=== PATIENT | female | born 1955 | race Caucasian/White ===

== ENCOUNTER 2021-06-20 13:15 | Outpatient (CLI) | payer OTHER | END 2021-06-20 20:54 | disposition home or self-care (01) | LOC: MRD 13:15 | PROVIDERS: ATTEND Podiatrist Foot & Ankle Surgery | DX: M19.072 Primary osteoarthritis, left ankle and foot (principal); M19.071 Primary osteoarthritis, right ankle and foot | CPT/HCPCS: 73630 ==

== ENCOUNTER 2023-08-29 08:07 | Outpatient (CLI) | payer OTHER ==
[2023-08-29 10:43] LABS: FREE T4 (FREE THYROXINE) 0.91 ng/dL (0.76-1.46); THYROID STIMULATING HORMONE 1.97 uIU/mL (0.34-3.74)
== END 2023-08-29 17:50 | disposition home or self-care (01) ==
LOC: MLB 08:07
PROVIDERS: ATTEND Internal Medicine
DX: E03.9 Hypothyroidism, unspecified (principal); R53.83 Other fatigue; L67.9 Hair color and hair shaft abnormality, unspecified; I10 Essential (primary) hypertension
CPT/HCPCS: 36415; 84439; 84443

== ENCOUNTER 2024-06-08 09:16 | Emergency (ER) | payer OTHER ==
[~2024-06-08] VITALS: Ht 167.6 cm; Wt 91.7 kg
[2024-06-08 09:21] VITALS: BP 123/69; PULSE 98; RESP 18; TEMP 99.6; O2SAT 95
[2024-06-08] MEDS: KETOROLAC 30 MG/ML VIAL IM ONE (09:30)
[2024-06-08 10:25] LABS: ALBUMIN 3.5 g/dL (3.4-5.0); ANION GAP 12.9 (8-16); CALCIUM 9.5 mg/dL (8.5-10.1); CREATININE 1.2 mg/dL (0.6-1.3); POTASSIUM 3.9 mmol/L (3.5-5.1); TOTAL BILIRUBIN 0.5 mg/dL (0.0-1.0)
[2024-06-08 10:28] LABS: BASOPHILS % (AUTO) 0.9 % (0.0-2.0); HEMATOCRIT 42.2 % (36-48); HEMOGLOBIN 13.9 g/dL (12.0-16.0); LYMPHOCYTES # (AUTO) 0.3 K/uL (2.5-16.5); LYMPHOCYTES % (AUTO) 10.9 % (20.5-51.1); MEAN CORPUSCULAR HEMOGLOBIN 29 pg (27-31); MEAN CORPUSCULAR HGB CONC 33 g/dL (33-37); MONOCYTES # (AUTO) 0.1 K/uL (0.8-1.0); MONOCYTES % (AUTO) 4.4 % (1.7-9.3); NEUTROPHILS # (AUTO) 2.4 K/uL (1.8-7.7); NEUTROPHILS % (AUTO) 83.8 % (42.2-75.2); PLATELET COUNT (AUTO) 122 K/uL (140-450); RED BLOOD CELL COUNT(AUTO) 4.85 MIL/uL (4.20-5.40); RED CELL DISTRIBUTION WIDTH 15.4 % (11.6-13.7); WHITE BLOOD COUNT (AUTO) 2.9 K/uL (4.8-10.8)
[2024-06-08] MEDS ORDERED: ACETAMINOPHEN EXTRA STRENGTH 500 MG TAB ONE (10:48)
[2024-06-08 10:50] LABS: FLU A ANTIGEN negative (NEGATIVE); FLU B ANTIGEN negative (NEGATIVE)
[2024-06-08] MEDS: ACETAMINOPHEN EXTRA STRENGTH 500 MG TAB PO ONE (10:50)
[2024-06-08] MEDS: NACL 0.9% 1,000 ML IV ONE (11:56)
[2024-06-08 13:22] LABS: APPEARANCE,URINE CLEAR (CLEAR); BILIRUBIN,URINE NEGATIVE (NEGATIVE); BLOOD, URINE NEGATIVE (NEGATIVE); COLOR,URINE YELLOW (YELLOW); LEUKOCYTE ESTERASE ,URINE NEGATIVE (NEGATIVE); NITRITE, URINE NEGATIVE (NEGATIVE); PROTEIN,URINE TRACE (NEGATIVE); UGLUCOSE NEGATIVE (NEGATIVE); UROBILINOGEN,URINE 0.2 EU/dL (0.2 - 1)
[2024-06-08 13:50] VITALS: BP 94/60; PULSE 86; RESP 20; TEMP 99.8; O2SAT 95
== END 2024-06-08 13:50 | disposition home or self-care (01) ==
LOC: MED 09:16
DX: M79.10 Myalgia, unspecified site (principal); R50.9 Fever, unspecified; R51.9 Headache, unspecified; I10 Essential (primary) hypertension; J45.909 Unspecified asthma, uncomplicated; E78.5 Hyperlipidemia, unspecified; Z20.822 Contact with and (suspected) exposure to COVID-19
CPT/HCPCS: 36415; 71045; 80053; 81003; 83605; 85025; 87040; 87426; 87804; 96360; 99285; J7030; Q0092